=== PATIENT | male | born 2000 | race Two or more races ===

== ENCOUNTER 2020-11-22 06:25 | Inpatient (IN) | payer SELFPAY ==
[~2020-11-22] VITALS: Ht 185.4 cm; Wt 74.7 kg
[2020-11-22] MEDS ORDERED: MORPHINE SULFATE 4 MG/ML, 1ML IVPush PRN (06:30)
[2020-11-22] MEDS ORDERED: SODIUM CHLORIDE FLUSH 10ML SYR IVF ONE (06:30)
[2020-11-22] MEDS ORDERED: MORPHINE SULFATE 4 MG/ML, 1ML ONE (06:32)
--- NOTE | 2020-11-22 06:41 | NUR ---
kev ems from home. pt is cuban speaking, sister to translate. pt had "seizure like" episode at home. pt very lethargic upon arrival, able to answer some questions but not able to follow most commands, even in [facility]. pt speaking romanian at times as well. pt mumbling, unable to understand answers. this rn was going to admin medication, when teliing pt, he refused. pt taken to ct scan at this time. cxr completed. seizure precautions in place
[2020-11-22] MEDS ORDERED: SODIUM CHLORIDE 0.9% 1,000ML IVBOLUS ONE ×2 (07:00→08:00)
[2020-11-22 07:08] LABS: BASOPHILS % (AUTO) 1 % (0-1); EOSINOPHILS % (AUTO) 5 % (1-7); LYMPHOCYTES % (AUTO) 43 % (22-44); MEAN CORPUSCULAR HEMOGLOBIN 29.5 pg (27.5-34.5); MEAN CORPUSCULAR HGB CONC 33.3 g/dL (33.2-36.2); MONOCYTES % (AUTO) 13 % (2-9); NEUTROPHILS % (AUTO) 39 % (42-75); PLATELET COUNT 219 x10^3/uL (130-400); RED BLOOD COUNT 4.86 x10^6/uL (4.38-5.82); RED CELL DISTRIBUTION WIDTH 12.8 % (9.4-14.8)
[2020-11-22 07:11] LABS: MD NO
--- NOTE | 2020-11-22 07:12 | NUR ---
Report from Shy CONWAY, pt rocking back and forth in bed, still only responsive to sister, denied pain medicine, POC discussed
[2020-11-22 07:17] LABS: ALANINE AMINOTRANSFERASE 34 U/L (12-78); ALBUMIN 3.8 g/dL (3.4-5.0); ANION GAP 7 mmol/L (5-15); CALCIUM 8.3 mg/dL (8.5-10.1); CHLORIDE 109 mmol/L (98-107); CREATININE 0.94 mg/dL (0.7-1.3)
[2020-11-22 07:20] LABS: ALKALINE PHOSPHATASE 94 U/L (45-117); BILIRUBIN,TOTAL 0.3 mg/dL (0.2-1.0); TOTAL PROTEIN 6.8 g/dL (6.4-8.2)
[2020-11-22 07:21] LABS: SALICYLATE LEVEL < 1.7 mg/dL (2.8-20.0)
[2020-11-22] MEDS ORDERED: ONDANSETRON 2MG/ML, 2ML ONE (07:46)
[2020-11-22] MEDS ORDERED: LORazepam 2 MG/ML, 1ML ONE ×2 (07:47→08:13)
[2020-11-22 07:51] LABS: ACETONE, SERUM Negative (Negative)
[2020-11-22] MEDS ORDERED: LORazepam 2 MG/ML, 1ML IVPush ONE ×2 (08:00→08:30)
--- NOTE | 2020-11-22 08:10 | NUR ---
1mg Ativan given, continued agitaytion, IV removed by pt, all monitors removed by pt
[2020-11-22] MEDS ORDERED: HALOPERIDOL 5 MG/ML ONE (08:17)
--- NOTE | 2020-11-22 08:21 | NUR ---
Pt with continued agitation, attempting to remove newly inserted IV, DR Cowart at bedside with orders for 2mg Ativan and 5 Haldol. Pt continues to thrash even with multiple staff holding pt still for pt saftey. Pt tried to get out of bed, positioned to middle of bed for saftey. IV taped in place and coban utalized to maintain IV placement. VSS. IVFs running, monitors in place.
[2020-11-22] MEDS ORDERED: ONDANSETRON 2MG/ML, 2ML IVPush ONE (08:30)
[2020-11-22] MEDS ORDERED: HALOPERIDOL 5 MG/ML IV ONE (08:30)
--- NOTE | 2020-11-22 08:34 | NUR ---
Pt appears more calm, intermittent agitation but sitter at bedside to ensure pt safety. all monitors remain in place, all safety measures observed.
--- NOTE | 2020-11-22 09:54 | NUR ---
Pt continues with agitation, attempting to remove monitors and IV. Pt kept safe by sitter at bedside.
--- NOTE | 2020-11-22 10:39 | NUR ---
Pt resting in bed, still aggitated, VSS
--- NOTE | 2020-11-22 11:02 | NUR ---
TASK RN: FAMILY AND SITTER AT BEDSIDE. PT RESTLESS AND MUMBLING, BREATHING EVEN AND UNLABORED
--- NOTE | 2020-11-22 11:39 | NUR ---
Pt with increased agitation. Pt calms intermittently. Discussed with Dr. Cowart. Pt assisted to void into urinal. Urine sample sent to lab. POC discussed with pt's sister who remains at bedside.
[2020-11-22 12:11] LABS: AMPHETAMINE SCREEN, URINE Negative (Negative); BARBITURATE SCREEN, URINE Negative (Negative); BENZODIAZEPINE SCREEN, URINE Negative (Negative); CANNABINOID SCREEN, URINE Negative (Negative); COCAINE SCREEN, URINE Negative (Negative); METHADONE SCREEN, URINE Negative (Negative); OPIATE SCREEN, URINE Negative (Negative)
--- NOTE | 2020-11-22 12:38 | NUR ---
BREAK RN: FERNANDEZ AT BEDSIDE FOR REASSESSMENT. PT RESTING ON GURNEY, NO AGGITATION NOTED AT THIS TIME. SITTER AND PT SISTER AT BEDSIDE. PT CONNECTED TO MONITORING.
--- NOTE | 2020-11-22 12:43 | NUR ---
BREAK RN: REPORT BACK TO PRIMARY RN: ANI.
[2020-11-22 12:48] LABS: MICROSCOPIC NOT IND
[2020-11-22] MEDS ORDERED: LIDOCAINE-MPF 1%, 5ML ONE ×2 (13:08→13:09)
[2020-11-22] MEDS ORDERED: SODIUM CHLORIDE FLUSH 10ML SYR IVF PRN (13:30)
--- NOTE | 2020-11-22 13:36 | NUR ---
IR called to ensure that consent will be signed by sister and sedation paperwork is ready
--- NOTE | 2020-11-22 13:43 | NUR ---
report given to KIMBERLY CONWAY
[2020-11-22 14:14] VITALS: BP 100/48
[2020-11-22 14:29] VITALS: BP 100/48
[2020-11-22] MEDS ORDERED: MIDAZOLAM 1 MG/ML, 5ML ONE (15:11)
[2020-11-22] MEDS ORDERED: FENTANYL PF 100 MCG/2ML ONE (15:11)
[2020-11-22] MEDS: VALPROATE SODIUM 500 MG in SODIUM CHLORIDE 0.9% 100 ML IV SCH ×2 (15:42→21:48)
[2020-11-22 16:00] LABS: GLUCOSE, CSF 66 mg/dL (40-80); TOTAL PROTEIN,CSF 34 mg/dL (15-45)
[2020-11-22] MEDS ORDERED: MELATONIN 5 MG TABLET PO PRN (18:00)
[2020-11-22] MEDS ORDERED: ONDANSETRON 2MG/ML, 2ML IVPush PRN (18:00)
[2020-11-22] MEDS ORDERED: DOCUSATE 100 MG CAPSULE PO PRN (18:00)
[2020-11-22] MEDS ORDERED: hydrALAzine 20 MG/ML, 1ML IVPush PRN (18:00)
[2020-11-22] MEDS ORDERED: POLYETHYLENE GLYCOL 17 GM PACKET PO PRN (18:00)
[2020-11-22] MEDS ORDERED: morphine SULFATE 10 MG/ML, 1ML IVPush PRN (18:00)
[2020-11-22] MEDS ORDERED: ACETAMINOPHEN 325 MG TABLET PO PRN (18:00)
[2020-11-22] MEDS ORDERED: HYDROcodone/APAP 5/325 TABLET PO PRN (18:00)
[2020-11-22] MEDS ORDERED: ONDANSETRON ODT 4 MG PO PRN (18:00)
[2020-11-22] MEDS ORDERED: BISACODYL 10 MG SUPP PR PRN (18:00)
[2020-11-22] MEDS: ACYCLOVIR 750 MG in SODIUM CHLORIDE 0.9% 250 ML IV SCH (18:22)
[2020-11-22] MEDS: LACTATED RINGERS 1,000 ML IV SCH (18:22)
[2020-11-22] MEDS: HEPARIN 5,000 UNITS/ML, 1ML SQ SCH (18:34)
[2020-11-22 18:50] VITALS: BP 109/48
[2020-11-22] MEDS: PYRAZINAMIDE 500 MG TABLET PO SCH (19:51)
[2020-11-22] MEDS: PYRIDOXINE (Vitamin B6) 50MG TAB PO SCH (19:53)
[2020-11-22] MEDS: ISONIAZID 300 MG TABLET PO SCH (19:53)
[2020-11-22] MEDS: RIFAMPIN 300 MG CAPSULE PO SCH (19:54)
[2020-11-22] MEDS: ETHAMBUTOL 400 MG TABLET PO SCH (19:55)
[2020-11-22] MEDS: SODIUM CHLORIDE 0.9% IV SCH (19:57)
[2020-11-22] MEDS: DEXAMETHASONE IV SCH (19:57)
[2020-11-22] MEDS: CEFTRIAXONE 2 GM in DEXTROSE 5% 50 ML IVPB SCH (19:57)
[2020-11-22] MEDS: INSULIN LISPRO 100 UNITS/ML, PEN SQ-INSULIN SCH (19:59)
[2020-11-23 01:09] VITALS: BP 95/52
[2020-11-23] MEDS: HEPARIN 5,000 UNITS/ML, 1ML SQ SCH ×3 (01:56→18:15)
[2020-11-23] MEDS: ACYCLOVIR 750 MG in SODIUM CHLORIDE 0.9% 250 ML IV SCH ×3 (01:56→18:15)
[2020-11-23 03:19] LABS: MICROSCOPIC AUTO
[2020-11-23] MEDS: LACTATED RINGERS 1,000 ML IV SCH ×2 (04:00→14:14)
[2020-11-23 05:42] LABS: BASOPHILS % (AUTO) 0 % (0-1); EOSINOPHILS % (AUTO) 0 % (1-7); LYMPHOCYTES % (AUTO) 13 % (22-44); MEAN CORPUSCULAR HEMOGLOBIN 29.6 pg (27.5-34.5); MEAN CORPUSCULAR HGB CONC 33.8 g/dL (33.2-36.2); MEAN PLATELET VOLUME 8.5 fL (7.4-10.4); MONOCYTES % (AUTO) 3 % (2-9); NEUTROPHILS % (AUTO) 84 % (42-75); PLATELET COUNT 236 x10^3/uL (130-400); RED BLOOD COUNT 4.76 x10^6/uL (4.38-5.82); RED CELL DISTRIBUTION WIDTH 12.9 % (9.4-14.8)
[2020-11-23 05:49] LABS: ALBUMIN 3.7 g/dL (3.4-5.0); ANION GAP 7 mmol/L (5-15); CALCIUM 8.5 mg/dL (8.5-10.1); CHLORIDE 107 mmol/L (98-107)
[2020-11-23 05:51] LABS: MD NO
[2020-11-23 05:53] LABS: HCT (SEDRATE) 41.8 % (39.2-51.8)
[2020-11-23 05:59] LABS: ALANINE AMINOTRANSFERASE 30 U/L (12-78); ALKALINE PHOSPHATASE 74 U/L (45-117); BILIRUBIN,TOTAL 1.7 mg/dL (0.2-1.0); CHOL/HDL RATIO 3.3; CHOLESTEROL, TOTAL 117 mg/dL (140-239); CREATININE 0.89 mg/dL (0.7-1.3); HDL CHOL % 31 % (26-37); HDL CHOLESTEROL (DIRECT) 36 mg/dL (40-60); LDL CHOLESTEROL,CALCULATED 75 mg/dL (54-169); LDL/HDL RATIO 2.1 (0.5-3.0); TOTAL PROTEIN 7.1 g/dL (6.4-8.2); TRIGLYCERIDES 28 mg/dL (50-200); VLDL CHOLESTEROL 6 mg/dL (0-25)
[2020-11-23 06:43] VITALS: BP 92/53
[2020-11-23] MEDS: INSULIN LISPRO 100 UNITS/ML, PEN SQ-INSULIN SCH ×4 (07:00→19:47)
[2020-11-23] MEDS ORDERED: PANTOPRAZOLE 40 MG IV IVPush SCH (07:30)
[2020-11-23] MEDS: VALPROATE SODIUM 500 MG in SODIUM CHLORIDE 0.9% 100 ML IV SCH ×2 (09:20→21:16)
[2020-11-23] MEDS: PYRIDOXINE (Vitamin B6) 50MG TAB PO SCH (09:31)
[2020-11-23] MEDS: ISONIAZID 300 MG TABLET PO SCH (09:31)
[2020-11-23] MEDS: RIFAMPIN 300 MG CAPSULE PO SCH (09:31)
[2020-11-23] MEDS: ETHAMBUTOL 400 MG TABLET PO SCH (09:31)
[2020-11-23] MEDS: PYRAZINAMIDE 500 MG TABLET PO SCH (09:32)
[2020-11-23 12:32] VITALS: BP 91/47
[2020-11-23] MEDS ORDERED: GADOTERATE 10 MMOL/20ML SYR ONE (17:15)
[2020-11-23 17:52] VITALS: BP 100/59
[2020-11-23 19:13] VITALS: BP 106/61
[2020-11-23] MEDS: CEFTRIAXONE 2 GM in DEXTROSE 5% 50 ML IVPB SCH (19:47)
[2020-11-23] MEDS: DEXAMETHASONE IV SCH (20:37)
[2020-11-23] MEDS: SODIUM CHLORIDE 0.9% IV SCH (20:37)
[2020-11-24] MEDS: LACTATED RINGERS 1,000 ML IV SCH ×2 (00:49→16:25)
[2020-11-24 01:24] VITALS: BP 111/56
[2020-11-24] MEDS: ACYCLOVIR 750 MG in SODIUM CHLORIDE 0.9% 250 ML IV SCH ×2 (02:24→10:29)
[2020-11-24] MEDS: HEPARIN 5,000 UNITS/ML, 1ML SQ SCH ×3 (02:25→18:15)
[2020-11-24] MEDS: PANTOPRAZOLE 40MG TABLET PO SCH (05:03)
[2020-11-24 05:23] LABS: BASOPHILS % (AUTO) 0 % (0-1); EOSINOPHILS % (AUTO) 0 % (1-7); LYMPHOCYTES % (AUTO) 17 % (22-44); MEAN PLATELET VOLUME 8.9 fL (7.4-10.4); MONOCYTES % (AUTO) 6 % (2-9); NEUTROPHILS % (AUTO) 76 % (42-75); PLATELET COUNT 240 x10^3/uL (130-400); RED BLOOD COUNT 4.84 x10^6/uL (4.38-5.82); RED CELL DISTRIBUTION WIDTH 12.9 % (9.4-14.8)
[2020-11-24 05:34] LABS: CHLORIDE 105 mmol/L (98-107)
[2020-11-24 05:45] LABS: ALANINE AMINOTRANSFERASE 28 U/L (12-78); ALBUMIN 3.8 g/dL (3.4-5.0); ALKALINE PHOSPHATASE 71 U/L (45-117); ANION GAP 8 mmol/L (5-15); BILIRUBIN,TOTAL 0.8 mg/dL (0.2-1.0); CALCIUM 8.7 mg/dL (8.5-10.1); CREATININE 0.83 mg/dL (0.7-1.3); TOTAL PROTEIN 7.3 g/dL (6.4-8.2)
[2020-11-24 05:47] LABS: MD NO
[2020-11-24] MEDS: INSULIN LISPRO 100 UNITS/ML, PEN SQ-INSULIN SCH ×4 (07:00→20:15)
[2020-11-24 07:07] VITALS: BP 94/52
[2020-11-24] MEDS: VALPROATE SODIUM 500 MG in SODIUM CHLORIDE 0.9% 100 ML IV SCH ×2 (08:20→20:15)
[2020-11-24 11:47] VITALS: BP 99/58
[2020-11-24 13:29] VITALS: BP 92/39
[2020-11-24 16:35] VITALS: BP 100/51
[2020-11-24] MEDS: DEXAMETHASONE IV SCH (18:15)
[2020-11-24] MEDS: SODIUM CHLORIDE 0.9% IV SCH (18:15)
[2020-11-24 20:34] VITALS: BP 114/64
[2020-11-25 01:19] VITALS: BP 98/56
[2020-11-25] MEDS: HEPARIN 5,000 UNITS/ML, 1ML SQ SCH ×3 (02:11→18:00)
[2020-11-25 04:54] LABS: BASOPHILS % (AUTO) 0 % (0-1); EOSINOPHILS % (AUTO) 0 % (1-7); LYMPHOCYTES % (AUTO) 28 % (22-44); MEAN CORPUSCULAR HEMOGLOBIN 30.1 pg (27.5-34.5); MEAN CORPUSCULAR HGB CONC 34.3 g/dL (33.2-36.2); MEAN PLATELET VOLUME 8.6 fL (7.4-10.4); MONOCYTES % (AUTO) 10 % (2-9); NEUTROPHILS % (AUTO) 61 % (42-75); PLATELET COUNT 251 x10^3/uL (130-400); RED CELL DISTRIBUTION WIDTH 13.1 % (9.4-14.8)
[2020-11-25 04:55] LABS: MD NO
[2020-11-25 05:06] LABS: ANION GAP 4 mmol/L (5-15); CALCIUM 8.7 mg/dL (8.5-10.1); CHLORIDE 108 mmol/L (98-107); CREATININE 0.75 mg/dL (0.7-1.3)
[2020-11-25] MEDS: PANTOPRAZOLE 40MG TABLET PO SCH (05:35)
[2020-11-25] MEDS: LACTATED RINGERS 1,000 ML IV SCH (05:36)
[2020-11-25 06:34] VITALS: BP 102/52
[2020-11-25] MEDS: INSULIN LISPRO 100 UNITS/ML, PEN SQ-INSULIN SCH (07:00)
[2020-11-25] MEDS: VALPROATE SODIUM 500 MG in SODIUM CHLORIDE 0.9% 100 ML IV SCH (08:40)
[2020-11-25 08:45] VITALS: BP 109/58
[2020-11-25 11:29] LABS: QUANTIFERON TB Ag1-NIL 3.09 (0.000-0.000)
[2020-11-25 12:23] VITALS: BP 98/58
[2020-11-25 19:03] VITALS: BP 104/63
[2020-11-25] MEDS: VALPROIC ACID 250 MG CAPSULE PO SCH (20:49)
[2020-11-26 01:42] VITALS: BP 111/68
[2020-11-26] MEDS: HEPARIN 5,000 UNITS/ML, 1ML SQ SCH ×3 (02:13→18:00)
[2020-11-26] MEDS: PANTOPRAZOLE 40MG TABLET PO SCH (05:25)
[2020-11-26 07:30] VITALS: BP 86/42
[2020-11-26 08:43] VITALS: BP 106/61
[2020-11-26] MEDS: VALPROIC ACID 250 MG CAPSULE PO SCH ×2 (08:58→17:52)
[2020-11-26 13:58] VITALS: BP 93/53
[2020-11-26] MEDS ORDERED: VALP250C59 PO (14:18)
== END 2020-11-26 18:27 | disposition home or self-care (01) | DRG 97 ==
LOC: ED 13:26 → EDIP 13:28 → 4WST 13:56
PROVIDERS: ADMIT Internal Medicine; ATTEND Internal Medicine
PROC: 009U3ZX Drainage of Spinal Canal, Percutaneous Approach, Diagnostic (ICD-10-PCS; principal; 2020-11-22)
PROC: B01B1ZZ Fluoroscopy of Spinal Cord using Low Osmolar Contrast (ICD-10-PCS; 2020-11-22)
DX: B00.4 Herpesviral encephalitis (principal); J18.9 Pneumonia, unspecified organism; F05 Delirium due to known physiological condition; G93.40 Encephalopathy, unspecified; G40.89 Other seizures; G43.909 Migraine, unspecified, not intractable, without status migrainosus; Z20.822 Contact with and (suspected) exposure to COVID-19; Z78.9 Other specified health status; Z79.899 Other long term (current) drug therapy; Z86.61 Personal history of infections of the central nervous system
CPT/HCPCS: 36415; 62270; 62328; 70450; 70553; 71045; 71250; 80048; 80053; 80061; 80299; 80307; 80320; 80329; 81001; 81003; 82010; 82945; 82962; 83735; 84100; 84157; 84443; 85025; 85651; 86480; 86592; 86788; 86789; 87040; 87070; 87086; 87116; 87205; 87206; 87210; 87252; 87496; 87529; 87798; 87899; 88108; 89051; 93005; 95819; 99156; 99157; G0378; J0133; J0696; J1100; J1644; J2250; J2405; J3010; A9575; C9113; G0480; J1630; J2060; J7030; J7050; J7120